=== PATIENT | female | born 1995 | race Caucasian/White ===

== ENCOUNTER 2017-07-08 17:41 | Emergency (ER) | payer MEDICAID, OTHER ==
[2017-07-08 18:05] VITALS: BP 98/62
--- NOTE | 2017-07-08 18:35 | ED Physician Documentation ---
History of Present Illness - Stated complaint Stated Complaint: CRAMPING 17 WEEKS PREG - Chief complaint Chief Complaint: Abd Pain - History obtained from History obtained from: Patient, Family - History of Present Illness Timing: How many days ago (2) Pain level max: 0 Pain level now: 0 Improved by: nothing Worsened by: nothing - Additonal information Additional information: Patient is a 4 P0 who presents to the emergency department stating she has decreased movement over the past few days. Has no vaginal bleeding or discharge. No dysuria. She recently moved here from [place] and has not established with OB yet. Review of Systems Constitutional: denies: Fever Respiratory: denies: Cough GI: denies: Abdominal Pain, Nausea, Vomiting, Diarrhea : reports: Now EGA. denies: Dysuria, Frequency, Hesitancy, Vaginal bleeding Skin: denies: Rash PD PAST MEDICAL HISTORY - Past Medical History Past Medical History: No Psych: Depression, Eating disorder - Past Surgical History Past Surgical History: No - Allergies Allergies/Adverse Reactions: Allergies Allergy/AdvReac Type Severity Reaction Status Date / Time lorazepam [From Ativan] Allergy Unknown Verified 07/08/17 18:06 Penicillins Allergy Unknown Verified 07/08/17 18:06 Sulfa (Sulfonamide Allergy Unknown Verified 07/19/14 11:13 Antibiotics) - Social History Does the pt smoke?: No Smoking Status: Never smoker Does the pt drink ETOH?: No Does the pt have substance abuse?: No - Immunizations Immunizations: TDAP >10years/unknown PD ED PE NORMAL - Vitals Vital signs reviewed: Yes - General General: Alert and oriented X 3, No acute distress - HEENT HEENT: Moist mucous membranes - Cardiac Cardiac: RRR - Respiratory Respiratory: No respiratory distress, Clear bilaterally - Abdomen Abdomen: Soft, Non tender, Non distended - Back Back: No CVA TTP - Derm Derm: Warm and dry - Neuro Neuro: Alert and oriented X 3 Results - Vitals Vitals: Vital Signs - 24 hr 07/08/17 18:01 Temperature 36.5 C Heart Rate 102 H Respiratory 17 Rate Blood Pressure 98/62 O2 Saturation 98 Oxygen O2 Source Room air PD MEDICAL DECISION MAKING - ED course Complexity details: considered differential, d/w patient ED course: Patient is a 21-year-old female 4 para 0 who presents to the emergency department stating that she has not felt the baby move for the past few days. She is approximately 17 weeks . Bedside ultrasound revealed a heart rate of 147 bpm with good movement. Images were shown to the patient and her significant other. We will refer her to OB for further evaluation and care. No other complaints at this time. Patient counseled regarding signs and symptoms for which I believe and urgent re-evaluation would be necessary. Patient with good understanding of and agreement to plan and is comfortable going home at this time This document was made in part using voice recognition software. While efforts are made to proofread this document, sound alike and grammatical errors may occur. Departure - Departure Disposition: 01 Home, Self Care Clinical Impression: Qualifiers: Weeks of gestation: 17 weeks Qualified Code(s): Z3A.17 - 17 weeks gestation of Condition: Good Instructions: ED Preg Established Normal Sxs Follow-Up: [facility] [Provider Group] - Within 1 week Comments: Return if you worsen. Your ultrasound appears normal tonight Discharge Date/Time: 07/08/17 19:01
== END 2017-07-08 19:01 | disposition home or self-care (01) ==
LOC: ED 17:41
DX: O26.892 Other specified pregnancy related conditions, second trimester (principal); R10.9 Unspecified abdominal pain; Z3A.17 17 weeks gestation of pregnancy
CPT/HCPCS: 99282

== ENCOUNTER 2017-07-12 22:00 | Emergency (ER) | payer MEDICAID ==
[2017-07-12 23:12] LABS: BILIRUBIN,URINE NEGATIVE (NEGATIVE); GLUCOSE, URINE (UA) NEGATIVE (NEGATIVE); KETONES,URINE (UA) NEGATIVE (NEGATIVE); LEUKOCYTE ESTERASE, URINE TRACE (NEGATIVE); NITRITE,URINE NEGATIVE (NEGATIVE); OCCULT BLOOD,URINE NEGATIVE (NEGATIVE); PROTEIN,URINE NEGATIVE (NEGATIVE); UROBILINOGEN,URINE 0.2 (NORMAL) E.U./dL (NORMAL)
[2017-07-12 23:27] LABS: CLARITY,URINE CLEAR (CLEAR)
[2017-07-12 23:28] LABS: BACTERIA,URINE None Seen /HPF (None Seen); RBC,URINE None Seen /HPF (0-5); SQUAMOUS EPITHELIAL CELL,UR RARE Squamous (<= Few)
[2017-07-12 23:29] VITALS: BP 99/54
[2017-07-12] MEDS ORDERED: DEXAMETHASONE 10 MG/ML VIAL PO STA (23:34)
--- NOTE | 2017-07-12 23:40 | ED Physician Documentation ---
History of Present Illness - Stated complaint Stated Complaint: CONVULTIONS - Chief complaint Chief Complaint: Neuro - History obtained from History obtained from: Patient, Family - History of Present Illness Timing: Today - Additonal information Additional information: 21-year-old female feeling lightheaded and dizzy is 17 weeks and this evening she developed some eye fluttering and eye rolling and jerking movements. 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 She has arrived now after having drank 1 L of lemonade and she is feeling improved. Review of Systems Constitutional: denies: Fever, Chills, Myalgias Eyes: denies: Decreased vision Ears: denies: Ear pain Nose: denies: Rhinorrhea / runny nose, Congestion Throat: denies: Sore throat Cardiac: denies: Chest pain / pressure, Palpitations Respiratory: denies: Dyspnea, Cough GI: denies: Abdominal Pain, Nausea, Vomiting : denies: Dysuria, Frequency Skin: denies: Rash Musculoskeletal: denies: Neck pain, Back pain, Extremity pain Neurologic: reports: Seizure, Altered mental status. denies: Generalized weakness, Focal weakness, Numbness PD PAST MEDICAL HISTORY - Past Medical History Past Medical History: Yes Neuro: Seizure disorder Psych: Depression, Eating disorder - Past Surgical History Past Surgical History: No - Present Medications Home Medications: Ambulatory Orders Medication Instructions Recorded Confirmed No Known Home Medications [No 07/12/17 07/12/17 Known Home Medications] - Allergies Allergies/Adverse Reactions: Allergies Allergy/AdvReac Type Severity Reaction Status Date / Time lorazepam [From Ativan] Allergy Unknown Verified 07/12/17 22:11 Penicillins Allergy Unknown Verified 07/12/17 22:11 Sulfa (Sulfonamide Allergy Unknown Verified 07/12/17 22:11 Antibiotics) - Social History Does the pt smoke?: No Smoking Status: Never smoker Does the pt drink ETOH?: No Does the pt have substance abuse?: No - Immunizations Immunizations: TDAP >10years/unknown - POLST Patient has POLST: No PD ED PE NORMAL - Vitals Vital signs reviewed: Yes - General General: Alert and oriented X 3, No acute distress, Well developed/nourished - HEENT HEENT: Atraumatic, PERRL, EOMI, Ears normal - Neck Neck: Supple, no meningeal sign, No bony TTP - Cardiac Cardiac: No murmur, Other (tachy to 100) - Respiratory Respiratory: No respiratory distress, Clear bilaterally - Abdomen Abdomen: Soft, Non tender, Other ( bump to 2cm below the umbilicus) - Back Back: No CVA TTP, No spinal TTP - Derm Derm: Normal color, Warm and dry, No rash - Extremities Extremities: No deformity, No edema - Neuro Neuro: Alert and oriented X 3, No motor deficit, No sensory deficit, Normal speech Eye Opening: Spontaneous Motor: Obeys Commands Verbal: Oriented GCS Score: 15 - Psych Psych: Normal mood, Normal affect Results - Vitals Vitals: Vital Signs - 24 hr 07/12/17 07/12/17 22:05 23:29 Temperature 36.1 C L Heart Rate 90 87 Respiratory 18 18 Rate Blood Pressure 109/69 99/54 L O2 Saturation 97 99 Oxygen O2 Source Room air - Labs Labs: Laboratory Tests 07/12/17 23:03 Urine Color LT. YELLOW Urine Clarity CLEAR Urine pH 6.0 Ur Specific [place] <=1.005 Urine Protein NEGATIVE Urine Glucose (UA) NEGATIVE Urine Ketones NEGATIVE Urine Occult Blood NEGATIVE Urine Nitrite NEGATIVE Urine Bilirubin NEGATIVE Urine Urobilinogen 0.2 (NORMAL) Ur Leukocyte Esterase TRACE H Urine RBC None Seen Urine WBC 4-5 Ur Squamous Epith Cells RARE Squamous Urine Bacteria None Seen Ur Microscopic Review INDICATED Urine Culture Comments INDICATED Procedures - Bedside sono Bedside sono by EMP: With use of bedside ultrasound the fetus is imaged it is moving well and has a biparietal diameter consistent with 18 weeks and a heart rate of 156. Photograph of the fetus is given to the mother with a resultant perma- grin. - IVC sono (time) 2250 Bedside IVC sono: IVC measures (cm) (1.4), IVC collapsed c insp (cm) (0.8), Euvolemia (nearly and on the low side.) PD MEDICAL DECISION MAKING - ED course Complexity details: reviewed old records, reviewed results, re-evaluated patient , considered differential, d/w patient, d/w family ED course: 21-year-old female with prior history of pseudoseizures has developed some pseudoseizure activity this evening and on the way to the hospital here, her boyfriend has given her 32 ounces of fluids to drink and shortly after arrival to here she is able to walk into the emergency department and feels better and better. After she is shown her baby on ultrasound she has a remarkable improvement in her affect and a broad smile she is given a picture of the fetus and encouraged to hydrate and take care of herself for her baby. She seems invested. Departure - Departure Disposition: 01 Home, Self Care Clinical Impression: Pseudoseizure, Dehydration Condition: Stable Instructions: ED Dehydration Follow-Up: [facility] [Provider Group] Discharge Date/Time: 07/13/17 00:00
== END 2017-07-13 | disposition home or self-care (01) ==
LOC: ED 22:00
DX: O99.282 Endocrine, nutritional and metabolic diseases complicating pregnancy, second trimester (principal); E86.0 Dehydration; O26.892 Other specified pregnancy related conditions, second trimester; R56.9 Unspecified convulsions; Z3A.18 18 weeks gestation of pregnancy
CPT/HCPCS: 81001; 81003; 87086; 99283; 99284

== ENCOUNTER 2017-08-01 19:25 | Emergency (ER) | payer MEDICAID ==
[2017-08-01 20:38] LABS: BILIRUBIN,URINE NEGATIVE (NEGATIVE); GLUCOSE, URINE (UA) NEGATIVE (NEGATIVE); KETONES,URINE (UA) NEGATIVE (NEGATIVE); LEUKOCYTE ESTERASE, URINE NEGATIVE (NEGATIVE); NITRITE,URINE NEGATIVE (NEGATIVE); OCCULT BLOOD,URINE NEGATIVE (NEGATIVE); PROTEIN,URINE NEGATIVE (NEGATIVE); UROBILINOGEN,URINE 0.2 (NORMAL) E.U./dL (NORMAL)
[2017-08-01 20:43] LABS: AMORPHOUS SEDIMENT,UR Marked /LPF; BACTERIA,URINE Few /HPF (None Seen); CLARITY,URINE HAZY (CLEAR); RBC,URINE 0-5 /HPF (0-5); SQUAMOUS EPITHELIAL CELL,UR MANY Squamous (<= Few)
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
[2017-08-01 21:53] VITALS: BP 120/60
== END 2017-08-01 21:52 | disposition home or self-care (01) ==
LOC: ED 19:25
DX: O99.512 Diseases of the respiratory system complicating pregnancy, second trimester (principal); J40 Bronchitis, not specified as acute or chronic; Z3A.20 20 weeks gestation of pregnancy
CPT/HCPCS: 71046; 81001; 81003; 87086; 99283; 99284